=== PATIENT | female | born 1935 | race Caucasian/White ===

== ENCOUNTER 2017-05-05 19:03 | Emergency (ER) | payer MEDICARE, OTHER ==
[~2017-05-05] VITALS: Ht 154.9 cm; Wt 77.1 kg
[~2017-05-05 19:03] MED LIST: DOXY100T PO
[2017-05-05] MEDS ORDERED: fentaNYL PF VIAL 100 MCG/2 ML VIAL IV PRN (20:00)
[2017-05-05 20:54] LABS: BILIRUBIN,URINE NEGATIVE (NEG); GLUCOSE,URINE NEGATIVE (NEG); NITRITE,URINE NEGATIVE (NEG); PH,URINE 5.5; PROTEIN,URINE 30 mg/dL (NEG-TRACE); UROBILINOGEN,URINE 0.2 mg/dL (0.2 mg/dL)
[2017-05-05 21:02] LABS: BACTERIA,URINE 0 /HPF (0-FEW); RBC,URINE 0 /HPF (0-2); SQUAMOUS EPITHELIAL CELL,UR FEW /LPF; WBC,URINE >40 /HPF (0-4)
--- NOTE | 2017-05-05 21:20 | RAD ---
CT HEAD AND CERVICAL SPINE without contrast Clinical indications: The patient fell; head and neck pain COMPARISON: None available. NONCONTRAST HEAD CT Technique: Noncontrast axial cross sectional scanning of the head was performed. Findings: No acute intracranial hemorrhage or midline shift or mass-effect or hydrocephalus or extra-axial fluid collection is seen. No focal hypodense area or sulci effacement is seen to indicate an acute infarct or edema radiographically. No skull fracture or pneumocephalus is seen. No opacification of the mastoid sinuses or the paranasal sinuses is seen. Impression: No acute intracranial abnormality is seen. NONCONTRAST CERVICAL SPINE CT TECHNIQUE: Noncontrast helical CT scanning of the cervical spine was performed. Multiplanar 2-D reconstructions were generated. FINDINGS: No acute fracture or discitis or osteolytic process is seen. No anterolisthesis is evident. There is degenerative disc space narrowing and endplate spurring from C3-4 through C7-T1. The facet joints are normally aligned. IMPRESSION: No acute fracture. Degenerative cervical spondylosis. PQRS compliance Statement One or more of the following individualized dose reduction techniques were utilized for this study: 1. Automated exposure control 2. Adjustment of the mA and/or kV according to patient size 3. Use of iterative reconstruction technique Electronically signed by: Gwyn Penn MD (05/05/2017 9:16 PM) [facility]
--- NOTE | 2017-05-05 22:09 | ED.ADGEN ---
Past Medical History Past Medical History: GERD, High Cholesterol, Hypertension, Other Additional Past Medical Histor: osteoporosis, sleep apnea Past Surgical History: Cholecystectomy, Tonsillectomy, Other Additional Past Surgical Histo: vaginal scar tissue removal Alcohol Use: Rarely Drug Use: None Adult General Chief Complaint Chief Complaint: MECHANICAL FALL HPI HPI Patient is a 81 year old woman, history of hypertension, hypercholesterolemia, GERD, so process, who presents to the emergency department with complaint of left shoulder and scapular pain after a fall. Patient states that she "lost my balance", well walking around a ironing board in her home today. States his occurred several hours prior to arrival. She states that she does not know exactly how she fell but it was a mechanical fall, she denies any preceding symptoms of chest pain, shortness breath, dizziness or lightheadedness. She states that she "falls sometimes", "it is part of getting old". She denies any medication changes or missed doses of medication, any lightheadedness or dizziness, any weakness, numbness, tingling. States the pain begins in her upper shoulder and extends into the scapular region, and then down into the middle aspect of her left upper extremity. She denies any other injuries or complaints. Did not strike her head, denies any loss of consciousness. She is not taking any medication prior to coming to the ED, is declining any plain medication at this time. C-collar placed upon arrival to the ED due to age and mechanism action with distracting injury. Review of Systems Review of Systems Constitutional: Denies fever or chills. [] Eyes: Denies change in visual acuity. [] HENT: Denies nasal congestion or sore throat. [] Respiratory: Denies cough or shortness of breath. [] Cardiovascular: Denies chest pain or edema. [] GI: Denies abdominal pain, nausea, vomiting, bloody stools or diarrhea. [] : Denies dysuria. [] Musculoskeletal: Denies back pain, pain in the scapular region of the back, pain in the left shoulder. Integument: Denies rash. [] Neurologic: Denies headache, focal weakness or sensory changes. [] Endocrine: Denies polyuria or polydipsia. [] Lymphatic: Denies swollen glands. [] Psychiatric: Denies depression or anxiety. [] Current Medications Current Medications Current Medications Medications (Trade) Dose Ordered Sig/Robert Start Time Stop Time Status Last Admin Dose Admin Fentanyl Citrate (Fentanyl 2ml Vial) 25 mcg PRN Q15MIN PRN 05/05/17 20:00 05/06/17 19:59 05/05/17 20:19 25 MCG Oxycodone/ Acetaminophen (Percocet 5/325) 1 tab 1X ONCE 05/05/17 23:00 05/05/17 23:01 DC Allergies Allergies Allergies Coded Allergies Type Severity Reaction Last Updated Verified Sulfa (Sulfonamide Antibiotics) Allergy Intermediate 02/26/15 Yes amoxicillin Allergy Intermediate 02/26/15 Yes Physical Exam Physical Exam Constitutional: Well developed, well nourished, no acute distress, non-toxic appearance. [] C-collar in place. HENT: Normocephalic, atraumatic, bilateral external ears normal, oropharynx moist, no oral exudates, nose normal. [] Eyes: PERRLA, EOMI, conjunctiva normal, no discharge. [] Neck: Normal range of motion, no tenderness, supple, no stridor. [] Cardiovascular:Heart rate regular rhythm, no murmur, S1, S2, rubs or gallops. [] Lungs & Thorax: Bilateral breath sounds clear to auscultation, no wheezing, rhonchi, rales. No chest wall crepitus or tenderness. [] Abdomen: Bowel sounds normal, soft, no tenderness, no masses, no rebound, rigidity, no guarding, no pulsatile masses. [] Skin: Warm, dry, no erythema, no rash. [] Back: No midline or paraspinal tenderness, no step-offs or deformities, no CVA tenderness. [] Extremities: Patient with tenderness palpation in the glenoid fossa, and in the upper humerus region, with tissue tension noted, no obvious deformity or signs of trauma, patient complaining of pain in the elbow as well although she does have range of motion, no tenderness to palpation with full range motion of the hand and in the wrist of the left upper extremity, pain along the upper ridge of the scapula, other extremities are intact painless motion. No cyanosis, no clubbing, ROM intact, no edema. [] Neurologic: Alert and oriented X 3, normal motor function, normal sensory function, no focal deficits noted. [] Psychologic: Affect normal, judgement normal, mood normal. [] Current Patient Data Vital Signs Vital Signs Date Time Temp Pulse Resp B/P (MAP) Pulse Ox O2 Delivery O2 Flow Rate FiO2 05/05/17 20:25 78 31 158/70 (99) 97 Room Air 05/05/17 19:25 97.9 97.9 Lab Values Laboratory Tests Test 05/05/17 20:20 Urine Collection Type Unknown Urine Color Yellow Urine Clarity Cloudy Urine pH 5.5 Urine Specific [place] 1.020 Urine Protein 30 mg/dL (NEG-TRACE) Urine Glucose (UA) Negative mg/dL (NEG) Urine Ketones (Stick) 15 mg/dL (NEG) Urine Blood Negative (NEG) Urine Nitrite Negative (NEG) Urine Bilirubin Negative (NEG) Urine Urobilinogen Dipstick 0.2 mg/dL (0.2 mg/dL) Urine Leukocyte Esterase Large (NEG) Urine RBC 0 /HPF (0-2) Urine WBC >40 /HPF (0-4) Urine Squamous Epithelial Cells Few /LPF Urine Transitional Epithelial Cells Mod /LPF Urine Bacteria 0 /HPF (0-FEW) Urine Hyaline Casts Moderate /HPF Urine Mucus Mod /LPF EKG EKG Not indicated. [] Radiology/Procedures Radiology/Procedures [][facility] [address] [place], [place] [id number] IMAGING REPORT Signed PATIENT: GRETCHEN RIOS ACCOUNT: [id number] : 1935 LOCATION: ER AGE: 81 SEX: F EXAM STATUS: REG ER ORD. PHYSICIAN: SANDOR MAGAÑA DO REASON: Fall/shoulder pain PROCEDURE: CT HEAD AND CERVICAL SPINE WO CT HEAD AND CERVICAL SPINE without contrast Clinical indications: The patient fell; head and neck pain COMPARISON: None available. NONCONTRAST HEAD CT Technique: Noncontrast axial cross sectional scanning of the head was performed. Findings: No acute intracranial hemorrhage or midline shift or mass-effect or hydrocephalus or extra-axial fluid collection is seen. No focal hypodense area or sulci effacement is seen to indicate an acute infarct or edema radiographically. No skull fracture or pneumocephalus is seen. No opacification of the mastoid sinuses or the paranasal sinuses is seen. Impression: No acute intracranial abnormality is seen. NONCONTRAST CERVICAL SPINE CT TECHNIQUE: Noncontrast helical CT scanning of the cervical spine was performed. Multiplanar 2-D reconstructions were generated. FINDINGS: No acute fracture or discitis or osteolytic process is seen. No anterolisthesis is evident. There is degenerative disc space narrowing and endplate spurring from C3-4 through C7-T1. The facet joints are normally aligned. IMPRESSION: No acute fracture. Degenerative cervical spondylosis. PQRS compliance Statement One or more of the following individualized dose reduction techniques were utilized for this study: 1. Automated exposure control 2. Adjustment of the mA and/or kV according to patient size 3. Use of iterative reconstruction technique Electronically signed by: Rodney Penn MD (05/05/2017 9:16 PM) [id number] DICTATED and SIGNED BY: RODNEY PENN MD DATE: 05/05/172104 CC: SANDOR MAGAÑA DO; NON,STAFF ~ Course & Med Decision Making Course & Med Decision Making Pertinent Labs and Imaging studies reviewed. (See chart for details) After discussion at bedside, patient has pain that does radiate slightly into the neck, therefore imaging of the neck obtained along with CT of the head due to age and fall distracting injury per Nexus criteria. Imaging of head and neck was unremarkable, c-collar was cleared without issue. X-rays obtained of the humerus, scapula, elbow and shoulder on the left. Palpation with tissue tension changes, concern for fracture of the humeral head and examination. Patient again did decline pain medication at this time. Patient did accept IM injection of fentanyl to obtain imaging of shoulder with good effect. Reveals a minimally displaced comminuted fracture of the left humeral head. Findings as above were discussed with Dr. Coffman of orthopedics, will place patient in a shoulder immobilizer, patient states she'll be able to obtain assistance with activities of daily living, she has her and other family members were present. We had a lengthy discussion at bedside regarding pain medication, patient states that she does not like "strong medication", states that she usually only uses Tylenol at home. She is willing to try half a tablet of Percocet as needed, she does not like medication that she will go back to Tylenol only, and will contact Dr. Coffman tomorrow to schedule an appointment, to return to the ED for any new or concerning symptoms as discussed. Also given a prescription for Colace to be used as needed with Percocet prescription. All questions answered patient's satisfaction at this time. Patient placed in immobilizer without issue , discharged home with prescription and follow-up instructions as stated. Dragon Disclaimer Dragon Disclaimer This electronic medical record was generated, in whole or in part, using a voice recognition dictation system. Departure Impression: Primary Impression: Fracture of humeral head, left, closed Disposition: HOME, SELF-CARE Condition: IMPROVED Scripts Docusate Sodium (COLACE) 100 Mg Capsule 1-2 TAB PO QHS Y for CONSTIPATION, #20 CAP Prov: SANDOR MAGAÑA DO 05/05/17 Oxycodone/Apap 5-325 (PERCOCET 5-325 MG TABLET) 1 Each Tablet 0.5-1 TAB PO PRN Q6HRS Y for PAIN, #12 TAB 0 Refills Prov: SANDOR MAGAÑA DO 05/05/17 SANDOR MAGAÑA DO May 05, 2017 22:09
[2017-05-05] MEDS ORDERED: oxyCODONE/APAP 5/325 1 TAB TABLET PO ONE (23:00)
[2017-05-05 23:08] VITALS: BP 156/82
[2017-05-05] MEDS ORDERED: OXYC-323 PO (23:09)
[2017-05-05] MEDS ORDERED: DOCU-109 PO (23:12)
--- NOTE | 2017-05-06 08:16 | RAD ---
Elbow plain films Indication: Fall/pain Technique: 3 views of the left elbow Comparison: None Findings: No acute fracture or dislocation. No elbow joint effusion. No soft tissue abnormality. Impression: No acute fractures or dislocation.
--- NOTE | 2017-05-06 08:21 | RAD ---
Humerus plain films Indication: Pain/fall Technique: 2 views of the left humerus Comparison: None Findings: There is a moderately displaced fracture through the greater tuberosity of the humerus. No extension to the articular surface. The glenohumeral and acromioclavicular joints are in normal anatomic alignment. Mild glenohumeral joint osteoarthritis. Impression: Moderately displaced fracture of the greater tuberosity of the humerus.
--- NOTE | 2017-05-06 08:23 | RAD ---
Shoulder x-rays Indication: Fall/pain Technique: 3 views of the left shoulder Comparison: None Findings: Moderately displaced fracture of the greater tuberosity of the humerus with no extension to the articular surface. The glenohumeral and acromioclavicular joints are in normal anatomic alignment. Mild glenohumeral joint osteoarthritis. Visualized left lung is clear. Impression: Moderately displaced fracture of the greater tuberosity of the humerus.
== END 2017-05-05 23:39 | disposition home or self-care (01) ==
LOC: ER 19:03
DX: S42.302A Unspecified fracture of shaft of humerus, left arm, initial encounter for closed fracture (principal); K21.9 Gastro-esophageal reflux disease without esophagitis; I10 Essential (primary) hypertension; E78.00 Pure hypercholesterolemia, unspecified; G47.30 Sleep apnea, unspecified; Z90.49 Acquired absence of other specified parts of digestive tract; Z88.1 Allergy status to other antibiotic agents; Z88.2 Allergy status to sulfonamides; W18.39XA Other fall on same level, initial encounter; Y93.89 Activity, other specified; Y99.8 Other external cause status; Y92.89 Other specified places as the place of occurrence of the external cause
CPT/HCPCS: 29105; 70450; 72125; 73030; 73060; 73080; 81001; 87086; 96374; 99285; J3010